=== PATIENT | male | born 1985 | race Native Hawaiian/Other Pacific Islander ===

== ENCOUNTER 2019-10-08 20:39 | Emergency (ER) | payer OTHER ==
[~2019-10-08] VITALS: Ht 188 cm; Wt 95.3 kg
[2019-10-08 21:41] VITALS: BP 132/89; TEMP 98.1
== END 2019-10-08 21:42 | disposition home or self-care (01) ==
LOC: ED 20:39
DX: K04.7 Periapical abscess without sinus (principal); K02.9 Dental caries, unspecified; F17.290 Nicotine dependence, other tobacco product, uncomplicated
CPT/HCPCS: 96372; 99283; J1885